=== PATIENT | male | born 1960 | race African-American/Black ===

== ENCOUNTER 2023-06-10 04:10 | Emergency (ER) | payer OTHER ==
[2023-06-10] MEDS ORDERED: Iopamidol 612 MG/ML 100 ML Bottle IVPUSH ONE (04:44)
== END 2023-06-10 05:40 | disposition home or self-care (01) ==
LOC: JD.ED 04:10
DX: S20.211A Contusion of right front wall of thorax, initial encounter (principal); V49.40XA Driver injured in collision with unspecified motor vehicles in traffic accident, initial encounter; Y92.410 Unspecified street and highway as the place of occurrence of the external cause
CPT/HCPCS: 70450; 71260; 72125; 74177; 99284; Q9967